=== PATIENT | female | born 1945 | race Caucasian/White ===

== ENCOUNTER 2022-06-29 03:33 | Emergency (ER) | payer OTHER ==
[~2022-06-29] VITALS: Ht 149.9 cm; Wt 91.0 kg
[2022-06-29 04:43] LABS: Basophils # (auto) 0.1 10 ^3/uL (0-0.2); Basophils % (auto) 0.5 % (0.0-2.0); Eosinophils # (auto) 0.2 10 ^3/uL (0-0.8); Eosinophils % (auto) 1.4 % (0.0-7.0); Lymphocytes # (auto) 0.9 10 ^3/uL (0.4-5.4); Neutrophils # (auto) 8.7 10 ^3/uL (1.6-8.6); White Blood Cell 10.8 10^3/uL (4.4-10.8)
[2022-06-29 04:45] LABS: Hematocrit 29.5 % (36.0-46.0); Hemoglobin 9.4 g/dL (12.2-16.2); Lymphocytes % (auto) 8.5 % (10.0-50.0); Mean Corpuscular Hemoglobin 22.5 pg (28.0-32.0); Mean Corpuscular Volume 70.3 fL (80.0-100.0); Monocytes % (auto) 9.6 % (0.0-12.0); Red Blood Cells 4.19 10^6/uL (4.0-5.20); Red Cell Distribution Width 17.2 % (11.8-14.3)
[2022-06-29 05:03] LABS: Albumin 3.2 g/dL (3.4-5.0); BUN/Creatinine Ratio 24.1; Calcium 8.2 mg/dL (8.5-10.1); Potassium 4.2 mmol/L (3.5-5.1)
[2022-06-29 05:06] LABS: Lactic Acid w/Reflex 2.8 mmol/L (0.4-2.0)
[2022-06-29 05:11] LABS: Bilirubin, Total 0.6 mg/dL (0.2-1.0); Total Protein 6.8 g/dL (6.4-8.2)
[2022-06-29] MEDS ORDERED: VANCOMYCIN 1GM/250ML 250 ML IV ONE (05:45)
[2022-06-29] MEDS ORDERED: SODIUM CHLORIDE 0.9% 2,750 ML IV ONE (05:45)
[2022-06-29] MEDS ORDERED: CLINDAMYCIN 300MG IV 50 ML IV ONE (05:45)
[2022-06-29 07:14] LABS: Urine Bacteria FEW /hpf (None Seen); Urine Blood Negative /uL (Negative); Urine Specific Gravity 1.014 (1.001-1.035); Urine WBC 35 /hpf (0 - 5)
[2022-06-29 07:16] LABS: INR 1.16 (0.9-1.15); Partial Thromboplastin Time 31.6 sec (24.6-33.4)
[2022-06-29 07:25] LABS: Alcohol, Urine < 3.0 mg/dL (0-10); Amphetamine Screen, Urine NEGATIVE (NEGATIVE); Barbiturate Scree,Urine NEGATIVE (NEGATIVE); Benzodiazephine Screen, Urine NEGATIVE (NEGATIVE); Cannabinoid Screen, Urine NEGATIVE (NEGATIVE); Cocaine Screen, Urine NEGATIVE (NEGATIVE); Opiate Scree,Urine NEGATIVE (NEGATIVE); Phencyclidine Screen, Urine NEGATIVE (NEGATIVE)
[2022-06-29] MEDS ORDERED: LABETALOL HCL 5 MG/ML 4ML SYRINGE IV ONE (13:15)
[2022-06-29] MEDS ORDERED: cefTRIAXone 1GM/50ML D5W 50 ML IV ONE (14:00)
[2022-06-29 16:00] VITALS: BP 124/76
== END 2022-06-29 16:45 | disposition short-term general hospital (02) ==
LOC: EDBD 03:33 → ER 03:33
DX: G93.41 Metabolic encephalopathy (principal); N39.0 Urinary tract infection, site not specified; R94.31 Abnormal electrocardiogram [ECG] [EKG]; Z20.822 Contact with and (suspected) exposure to COVID-19
CPT/HCPCS: 36415; 51702; 70450; 71045; 74176; 80053; 80307; 81001; 82962; 83605; 84484; 85025; 85610; 85730; 86850; 86900; 86901; 87040; 87426; 93005; 96365; 96366; 96367; 96375; 99285; J0696; J3370; J3490; J7030

== ENCOUNTER 2022-10-27 09:42 | Inpatient (IN) | payer OTHER ==
[~2022-10-27] VITALS: Ht 154.9 cm; Wt 85.4 kg
[2022-10-27 10:53] LABS: Basophils # (auto) 0.1 10 ^3/uL (0-0.2); Basophils % (auto) 0.6 % (0.0-2.0); Eosinophils # (auto) 0.1 10 ^3/uL (0-0.8); Eosinophils % (auto) 1.1 % (0.0-7.0); Hematocrit 30.1 % (36.0-46.0); Lymphocytes # (auto) 0.6 10 ^3/uL (0.4-5.4); Lymphocytes % (auto) 6.9 % (10.0-50.0); Mean Corpuscular Hgb Conc. 33.3 g/dL (32.0-36.0); Monocytes # (auto) 0.8 10 ^3/uL (0-1.3); Monocytes % (auto) 8.6 % (0.0-12.0); Neutrophils # (auto) 7.8 10 ^3/uL (1.6-8.6); Neutrophils % (auto) 82.8 % (37.0-80.0); Red Blood Cells 4.02 10^6/uL (4.0-5.20); Red Cell Distribution Width 17.8 % (11.8-14.3); White Blood Cell 9.4 10^3/uL (4.4-10.8)
[2022-10-27 11:07] LABS: Calcium 8.5 mg/dL (8.5-10.1)
[2022-10-27 11:09] LABS: BUN/Creatinine Ratio 33.2
[2022-10-27 11:12] LABS: Bilirubin, Total 0.7 mg/dL (0.2-1.0); Total Protein 6.5 g/dL (6.4-8.2)
[2022-10-27] MEDS ORDERED: SPIRONOLACTONE 25 MG TAB PO ONE (11:15)
[2022-10-27] MEDS ORDERED: FUROSEMIDE 20 MG/2 ML VIAL IV ONE (11:15)
[2022-10-27] MEDS ORDERED: ALBUTEROL SULF 2.5 MG/0.5ML(0.5%) NEB SOLN NEB ONE (11:15)
[2022-10-27] MEDS ORDERED: IPRATROPIUM BROM 0.5 MG/2.5ML INH SOL NEB ONE (11:15)
[2022-10-27 11:21] LABS: Potassium 5.7 mmol/L (3.5-5.1)
[2022-10-27 15:36] LABS: Urine Bacteria FEW /hpf (None Seen); Urine Blood Negative /uL (Negative); Urine WBC 7 /hpf (0 - 5)
[2022-10-27] MEDS ORDERED: cefTRIAXone 1GM/50ML D5W 50 ML IV ONE (16:30)
[2022-10-27] MEDS ORDERED: ALBUTEROL SULF 2.5 MG/0.5ML(0.5%) NEB SOLN NEB PRN (17:30)
[2022-10-27] MEDS ORDERED: HYDROmorphone HCL 2 MG/ML VL/or syr IV PRN (17:30)
[2022-10-27] MEDS ORDERED: ONDANSETRON HCL 4 MG/2 ML VIAL IV PRN (17:30)
[2022-10-27] MEDS ORDERED: MORPHINE SULFATE INJ 2 MG/ml SYRG IV PRN (17:30)
[2022-10-27] MEDS ORDERED: NITROGLYCERIN 0.4 MG SL TAB SL PRN (17:30)
[2022-10-27] MEDS ORDERED: ACETAMINOPHEN 325 MG TAB PO PRN (17:30)
[2022-10-27] MEDS ORDERED: DEXTROSE (50%) 50ML SYRG IV PRN (17:45)
[2022-10-27 18:00] VITALS: BP 116/44
[2022-10-27] MEDS: HEPARIN SODIUM (PORCINE) 5000 UNITS/ML 1ML VIAL SC SCH (18:40)
[2022-10-27] MEDS: FUROSEMIDE 20 MG/2 ML VIAL IV SCH (18:41)
[2022-10-27 20:34] LABS: Chloride 96 mmol/L (98-107); Potassium 5.1 mmol/L (3.5-5.1); Sodium 132 mmol/L (136-145)
[2022-10-27 20:35] LABS: Anion Gap 11 (5-15); BUN/Creatinine Ratio 34.1; Blood Urea Nitrogen 62 mg/dL (7-18); Calcium 8.4 mg/dL (8.5-10.1); Carbon Dioxide 25 mmol/L (21-32); GFR African American 35 mL/min; GFR Non-African American 29 mL/min; Glucose 250 mg/dL (74-106)
[2022-10-27 22:00] VITALS: BP 135/62
[2022-10-27] MEDS: SODIUM CHLOR 0.9% PF (SALINE LOCK) 10ML VIAL/SYR IV SCH (22:00)
[2022-10-27] MEDS: ACCU-CHEK COMFORT CURVE STRIP VI SCH (22:00)
[2022-10-27] MEDS ORDERED: LISI40TA11 PO (22:35)
[2022-10-27] MEDS ORDERED: SPIR25TA8 PO (22:35)
[2022-10-27] MEDS ORDERED: GLIP10TA9 PO (22:35)
[2022-10-27] MEDS ORDERED: METF-370 PO (22:35)
[2022-10-27] MEDS ORDERED: OMEP-260 PO (22:35)
[2022-10-27] MEDS ORDERED: CARV25TA55 PO (22:35)
[2022-10-27] MEDS ORDERED: TRAZ50TA2 PO (22:35)
[2022-10-27] MEDS ORDERED: ATOR40TA52 PO (22:35)
[2022-10-27] MEDS ORDERED: SERT-376 PO (22:35)
[2022-10-27] MEDS ORDERED: FURO40TA4 PO (22:35)
[2022-10-27] MEDS: HYDROcodone-ACET 5/325MG TAB PO PRN (23:47)
[2022-10-28] MEDS: InsuLIN REG 1unit/0.01ml Soln (100units/ml) SC SCH ×5 (00:21→21:58)
[2022-10-28] MEDS: HEPARIN SODIUM (PORCINE) 5000 UNITS/ML 1ML VIAL SC SCH ×2 (03:32→11:40)
[2022-10-28 05:00] VITALS: BP 151/46
[2022-10-28] MEDS: SODIUM CHLOR 0.9% PF (SALINE LOCK) 10ML VIAL/SYR IV SCH ×3 (05:54→21:58)
[2022-10-28] MEDS: FUROSEMIDE 20 MG/2 ML VIAL IV SCH ×2 (05:54→18:35)
[2022-10-28] MEDS: ACCU-CHEK COMFORT CURVE STRIP VI SCH ×4 (06:16→22:00)
[2022-10-28] MEDS: HYDROcodone-ACET 5/325MG TAB PO PRN ×2 (06:17→20:30)
[2022-10-28 09:00] VITALS: BP 133/53
[2022-10-28] MEDS: cefTRIAXone 1GM/50ML D5W 50 ML IV SCH (11:33)
[2022-10-28 13:00] VITALS: BP 131/63
[2022-10-28 17:00] VITALS: BP 143/54
[2022-10-28 17:53] LABS: Calcium 8.8 mg/dL (8.5-10.1)
[2022-10-28] MEDS: APIXABAN 5 MG TAB PO SCH (21:54)
[2022-10-28] MEDS: CLINDAMYCIN 900MG IV 50 ML IV SCH (21:56)
[2022-10-28] MEDS: INSULIN LANTUS (GLARGINE) 1 /0.01ml (100units/ml) SC SCH (21:59)
[2022-10-28 22:00] VITALS: BP 149/40
[2022-10-29 04:55] VITALS: BP 102/72
[2022-10-29] MEDS: CLINDAMYCIN 900MG IV 50 ML IV SCH (06:08)
[2022-10-29] MEDS: ACCU-CHEK COMFORT CURVE STRIP VI SCH ×4 (06:09→21:16)
[2022-10-29] MEDS: SODIUM CHLOR 0.9% PF (SALINE LOCK) 10ML VIAL/SYR IV SCH ×3 (06:11→21:16)
[2022-10-29] MEDS: InsuLIN REG 1unit/0.01ml Soln (100units/ml) SC SCH ×4 (06:12→21:15)
[2022-10-29] MEDS: FUROSEMIDE 20 MG/2 ML VIAL IV SCH ×2 (06:13→17:24)
[2022-10-29 08:00] VITALS: BP 137/54
[2022-10-29] MEDS ORDERED: APIX2.5T PO (10:13)
[2022-10-29] MEDS ORDERED: APIX5TAB PO (10:13)
[2022-10-29] MEDS ORDERED: ONDA-155 PO (10:15)
[2022-10-29] MEDS: APIXABAN 5 MG TAB PO SCH ×2 (10:16→20:59)
[2022-10-29] MEDS: cefTRIAXone 1GM/50ML D5W 50 ML IV SCH (10:16)
[2022-10-29 12:00] VITALS: BP 141/50
[2022-10-29 16:00] VITALS: BP 128/53
[2022-10-29 20:00] VITALS: BP 129/52
[2022-10-29] MEDS: HYDROcodone-ACET 5/325MG TAB PO PRN (20:58)
[2022-10-29] MEDS: ATORVASTATIN 20 MG TAB PO SCH (20:59)
[2022-10-29] MEDS: CARVEDILOL 3.125 MG TAB PO SCH (21:00)
[2022-10-29] MEDS: INSULIN LANTUS (GLARGINE) 1 /0.01ml (100units/ml) SC SCH (21:15)
[2022-10-29 22:47] VITALS: BP 129/52
[2022-10-30 05:19] VITALS: BP 126/41
[2022-10-30 06:02] LABS: Basophils # (auto) 0 10 ^3/uL (0-0.2); Basophils % (auto) 0.6 % (0.0-2.0); Eosinophils # (auto) 0.1 10 ^3/uL (0-0.8); Eosinophils % (auto) 1.5 % (0.0-7.0); Hematocrit 31.1 % (36.0-46.0); Hemoglobin 10.2 g/dL (12.2-16.2); Lymphocytes # (auto) 0.8 10 ^3/uL (0.4-5.4); Mean Corpuscular Hemoglobin 24.8 pg (28.0-32.0); Mean Corpuscular Hgb Conc. 32.9 g/dL (32.0-36.0); Mean Corpuscular Volume 75.2 fL (80.0-100.0); Monocytes # (auto) 0.9 10 ^3/uL (0-1.3); Monocytes % (auto) 11.5 % (0.0-12.0); Neutrophils # (auto) 5.7 10 ^3/uL (1.6-8.6); Neutrophils % (auto) 75.4 % (37.0-80.0); Nucleated Red Blood Cells % 1.5 %; Red Blood Cells 4.13 10^6/uL (4.0-5.20); Red Cell Distribution Width 17.2 % (11.8-14.3); White Blood Cell 7.6 10^3/uL (4.4-10.8)
[2022-10-30 06:20] LABS: BUN/Creatinine Ratio 33.6; Calcium 9.3 mg/dL (8.5-10.1); Potassium 4.6 mmol/L (3.5-5.1)
[2022-10-30] MEDS: FUROSEMIDE 20 MG/2 ML VIAL IV SCH ×2 (06:21→17:06)
[2022-10-30] MEDS: SODIUM CHLOR 0.9% PF (SALINE LOCK) 10ML VIAL/SYR IV SCH ×3 (06:21→21:42)
[2022-10-30] MEDS: ACCU-CHEK COMFORT CURVE STRIP VI SCH ×4 (06:21→21:40)
[2022-10-30] MEDS: InsuLIN REG 1unit/0.01ml Soln (100units/ml) SC SCH ×4 (06:27→21:45)
[2022-10-30] MEDS: cefTRIAXone 1GM/50ML D5W 50 ML IV SCH (08:49)
[2022-10-30] MEDS: APIXABAN 5 MG TAB PO SCH ×2 (08:50→21:35)
[2022-10-30] MEDS: CARVEDILOL 3.125 MG TAB PO SCH ×2 (08:52→21:37)
[2022-10-30 09:00] VITALS: BP 146/90
[2022-10-30] MEDS ORDERED: PANTOPRAZOLE 40 MG TAB PO SCH (10:00)
[2022-10-30] MEDS ORDERED: AZITHROMYCIN 250 MG TAB PO SCH (10:00)
[2022-10-30] MEDS ORDERED: SERTRALINE HCL 50 MG TAB PO SCH (10:00)
[2022-10-30 13:00] VITALS: BP 120/43
[2022-10-30 17:00] VITALS: BP 123/53
[2022-10-30 18:03] VITALS: BP 123/53
[2022-10-30] MEDS: ATORVASTATIN 20 MG TAB PO SCH (21:36)
[2022-10-30] MEDS: INSULIN LANTUS (GLARGINE) 1 /0.01ml (100units/ml) SC SCH (21:45)
== END 2022-10-30 22:00 | disposition short-term general hospital (02) | DRG 291 ==
LOC: EDBD 09:42 → ER 09:42 → OVERFLOW 17:28 → TELE-WESTW 21:46
PROVIDERS: ADMIT Internal Medicine; ATTEND Internal Medicine
DX: I13.0 Hypertensive heart and chronic kidney disease with heart failure and stage 1 through stage 4 chronic kidney disease, or unspecified chronic kidney disease (principal); I50.43 Acute on chronic combined systolic (congestive) and diastolic (congestive) heart failure; J96.00 Acute respiratory failure, unspecified whether with hypoxia or hypercapnia; N17.0 Acute kidney failure with tubular necrosis; J45.901 Unspecified asthma with (acute) exacerbation; E44.0 Moderate protein-calorie malnutrition; J91.8 Pleural effusion in other conditions classified elsewhere; I48.20 Chronic atrial fibrillation, unspecified; J44.1 Chronic obstructive pulmonary disease with (acute) exacerbation; N18.4 Chronic kidney disease, stage 4 (severe); N39.0 Urinary tract infection, site not specified; L03.116 Cellulitis of left lower limb; D68.69 Other thrombophilia; Z20.822 Contact with and (suspected) exposure to COVID-19; D63.8 Anemia in other chronic diseases classified elsewhere; E11.22 Type 2 diabetes mellitus with diabetic chronic kidney disease; E87.5 Hyperkalemia; K21.9 Gastro-esophageal reflux disease without esophagitis; F32.A Depression, unspecified; E66.9 Obesity, unspecified; E78.5 Hyperlipidemia, unspecified; Z95.2 Presence of prosthetic heart valve; Z68.35 Body mass index [BMI] 35.0-35.9, adult; Z90.49 Acquired absence of other specified parts of digestive tract; Z88.0 Allergy status to penicillin; Z88.8 Allergy status to other drugs, medicaments and biological substances
CPT/HCPCS: 36415; 51702; 70450; 71045; 80048; 80053; 81001; 82962; 83036; 83880; 84443; 84484; 85025; 87081; 87086; 87426; 87804; 93005; 93306; 93970; 94640; 96365; 96375; 97163; G0378; J0696; J1815; J3490

== ENCOUNTER 2023-07-29 17:41 | Emergency (ER) | payer OTHER ==
[~2023-07-29] VITALS: Ht 157.5 cm; Wt 94.0 kg
[~2023-07-29 17:41] MED LIST: APIX2.5T PO; APIX5TAB PO; ATOR40TA52 PO; CARV25TA55 PO; FURO40TA4 PO; GLIP10TA9 PO; LISI40TA16 PO; METF-370 PO; OMEP1CAP70 PO; ONDA-155 PO; SERT-376 PO; SPIR25TA8 PO; TRAZ-227 PO
[2023-07-29 18:08] VITALS: PULSE 101; O2SAT 96
[2023-07-29 18:54] LABS: Basophils # (auto) 0.1 10 ^3/uL (0-0.2); Mean Corpuscular Volume 72.9 fL (80.0-100.0); White Blood Cell 9.9 10^3/uL (4.4-10.8)
[2023-07-29 18:55] LABS: Basophils % (auto) 0.7 % (0.0-2.0); Eosinophils # (auto) 0.3 10 ^3/uL (0-0.8); Eosinophils % (auto) 2.9 % (0.0-7.0); Hematocrit 30.8 % (36.0-46.0); Hemoglobin 10.1 g/dL (12.2-16.2); Lymphocytes # (auto) 0.4 10 ^3/uL (0.4-5.4); Lymphocytes % (auto) 4.4 % (10.0-50.0); Mean Corpuscular Hemoglobin 23.8 pg (28.0-32.0); Mean Corpuscular Hgb Conc. 32.6 g/dL (32.0-36.0); Monocytes # (auto) 0.8 10 ^3/uL (0-1.3); Neutrophils # (auto) 8.3 10 ^3/uL (1.6-8.6); Red Blood Cells 4.22 10^6/uL (4.0-5.20); Red Cell Distribution Width 18.8 % (11.8-14.3)
[2023-07-29] MEDS ORDERED: ONDANSETRON ODT 4 MG TAB PO ONE (19:30)
[2023-07-29] MEDS ORDERED: SODIUM CHLORIDE 0.9% 1,000 ML IV ONE (19:30)
[2023-07-29 19:34] VITALS: PULSE 101; O2SAT 97
[2023-07-29] MEDS ORDERED: ACETAMINOPHEN 325 MG TAB PO ONE (19:45)
[2023-07-29] MEDS ORDERED: IOHEXOL 350 MG/ML 100ML IJ ONE (20:19)
[2023-07-29 20:49] LABS: INR 1.09 (0.9-1.15); Partial Thromboplastin Time 29.1 SEC (24.5-34.5); Prothrombin Time 11.4 sec (9.3-11.8)
[2023-07-29 21:46] LABS: Alanine Aminotransferase 19 U/L (7-40); Albumin 4.2 g/dL (3.2-4.8); Alkaline Phosphatase 147 U/L (46-116); Anion Gap 8 (5-15); Aspartate Aminotransferase 22 U/L (13-40); BUN/Creatinine Ratio 24.5 (10.0-20.0); Bilirubin, Total 0.6 mg/dL (0.2-1.0); Blood Alcohol 3.1 mg/dL (<10); Blood Urea Nitrogen 48 mg/dL (9-23); Carbon Dioxide 26 mmol/L (20-30); Chloride 99 mmol/L (98-107); Glucose 163 mg/dL (74-106); Potassium 5.2 mmol/L (3.5-5.1); Sodium 133 mmol/L (136-145); Total Protein 6.8 g/dL (5.7-8.2)
[2023-07-29 21:59] LABS: Magnesium 1.6 mg/dL (1.6-2.6)
[2023-07-30 00:26] LABS: COVID19 ANTIGEN SOFIA FIA NEGATIVE (NEGATIVE); Rapid Influenza A Negative (Negative); Rapid Influenza B Negative (Negative)
[2023-07-30 00:58] LABS: Amphetamine Screen, Urine Neg (NEGATIVE); Barbiturate Scree,Urine Neg (NEGATIVE); Benzodiazephine Screen, Urine Neg (NEGATIVE); Cocaine Screen, Urine Neg (NEGATIVE); Opiate Scree,Urine Neg (NEGATIVE)
[2023-07-30 00:59] LABS: Cannabinoid Screen, Urine Neg (NEGATIVE); Phencyclidine Screen, Urine Neg (NEGATIVE)
[2023-07-30 01:07] LABS: Urine Bacteria NONE SEEN /hpf (None Seen); Urine Blood Negative /uL (Negative); Urine Clarity Clear (Clear); Urine Color Colorless (Yellow); Urine Protein, UAD Negative (Negative); Urine Specific Gravity 1.014 (1.001-1.035); Urine Urobilinogen Normal (Negative); Urine WBC 3 /hpf (0 - 5)
[2023-07-30] MEDS ORDERED: cefTRIAXone 1GM/50ML D5W 50 ML IV ONE (02:45)
[2023-07-30] MEDS ORDERED: AZITHROMYCIN 500MG/ 250ML 250 ML IV ONE (02:45)
[2023-07-30] MEDS ORDERED: VANCOMYCIN PER PHARMACY 0 MG IV SCH (03:45)
[2023-07-30] MEDS ORDERED: ACETAMINOPHEN 325 MG TAB PO ONE (03:45)
[2023-07-30] MEDS ORDERED: ONDANSETRON HCL 4 MG/2 ML VIAL IV ONE (05:00)
[2023-07-30] MEDS ORDERED: MORPHINE SULFATE 4 MG/ML SYR/VIAL IV ONE (05:00)
[2023-07-30] MEDS ORDERED: VANCOMYCIN 1GM/250ML 250 ML IV ONE (05:15)
[2023-07-30] MEDS ORDERED: SODIUM CHLORIDE 0.9% 1,000 ML IV ONE ×2 (06:00→06:15)
[2023-07-30] MEDS ORDERED: ALBUMIN 5% 250 ML IV ONE (06:00)
[2023-07-30] MEDS ORDERED: ALBUMIN 25% 50 ML IV ONE (06:15)
[2023-07-30 07:20] VITALS: O2SAT 97
[2023-07-30 07:41] VITALS: BP 123/44; PULSE 82; RESP 15; TEMP 99.2
[2023-07-30 07:45] VITALS: O2SAT 96
== END 2023-07-30 08:01 | disposition short-term general hospital (02) ==
LOC: EDUNIT# 17:41 → EDBD 17:41 → ER 17:41
DX: R40.4 Transient alteration of awareness (principal); R53.1 Weakness; R50.9 Fever, unspecified; N73.9 Female pelvic inflammatory disease, unspecified; I10 Essential (primary) hypertension; J44.9 Chronic obstructive pulmonary disease, unspecified; Z88.8 Allergy status to other drugs, medicaments and biological substances; Z79.899 Other long term (current) drug therapy; Z86.2 Personal history of diseases of the blood and blood-forming organs and certain disorders involving the immune mechanism
CPT/HCPCS: 36415; 70450; 71045; 80053; 80307; 80320; 81001; 83605; 83735; 83880; 84484; 85025; 85379; 85610; 85730; 87040; 87426; 87804; 93005; 96361; 96365; 96366; 96368; 96375; 99285; J0456; J0696; J2270; J2405; J7030; Q0162; Q9967

== ENCOUNTER 2023-12-09 19:46 | Emergency (ER) | payer OTHER ==
[~2023-12-09] VITALS: Ht 152.4 cm; Wt 79.5 kg
[2023-12-09 21:00] LABS: Basophils # (auto) 0.1 10 ^3/uL (0-0.2); Eosinophils # (auto) 0.1 10 ^3/uL (0-0.8); Hemoglobin 8.4 g/dL (12.2-16.2); Lymphocytes # (auto) 0.9 10 ^3/uL (0.4-5.4); Neutrophils # (auto) 12.5 10 ^3/uL (1.6-8.6); Nucleated Red Blood Cells % 0.1 %
[2023-12-09 21:01] LABS: Basophils % (auto) 0.7 % (0.0-2.0); Eosinophils % (auto) 0.9 % (0.0-7.0); Hematocrit 27.6 % (36.0-46.0); Lymphocytes % (auto) 6.1 % (10.0-50.0); Mean Corpuscular Hgb Conc. 30.4 g/dL (32.0-36.0); Mean Corpuscular Volume 72.3 fL (80.0-100.0); Monocytes # (auto) 1.1 10 ^3/uL (0-1.3); Monocytes % (auto) 7.4 % (0.0-12.0); Neutrophils % (auto) 84.9 % (37.0-80.0); Red Blood Cells 3.82 10^6/uL (4.0-5.20); Red Cell Distribution Width 19.5 % (11.8-14.3); White Blood Cell 14.8 10^3/uL (4.4-10.8)
[2023-12-09 21:10] VITALS: BP 154/51; PULSE 22; RESP 22; TEMP 98.8; O2SAT 96
[2023-12-09 21:10] LABS: Alanine Aminotransferase 17 U/L (7-40); Albumin 3.9 g/dL (3.2-4.8); Alkaline Phosphatase 117 U/L (46-116); Anion Gap 5 (5-15); Aspartate Aminotransferase 23 U/L (13-40); BUN/Creatinine Ratio 32.4 (10.0-20.0); Blood Urea Nitrogen 48 mg/dL (9-23); Calcium 8.6 mg/dL (8.7-10.4); Carbon Dioxide 32 mmol/L (20-30); Chloride 97 mmol/L (98-107); Glucose 170 mg/dL (74-106); Potassium 3.9 mmol/L (3.5-5.1); Sodium 134 mmol/L (136-145)
[2023-12-09 21:11] LABS: Bilirubin, Total 1.2 mg/dL (0.2-1.0); Total Protein 6.4 g/dL (5.7-8.2)
[2023-12-09] MEDS: SODIUM CHLORIDE 0.9% 1,000 ML IV ONE (21:38)
[2023-12-09 21:40] LABS: Urine Bacteria NONE SEEN /hpf (None Seen); Urine Blood Negative /uL (Negative); Urine Clarity Clear (Clear); Urine Color Colorless (Yellow); Urine Protein, UAD Negative (Negative); Urine WBC 1 /hpf (0 - 5); Urine pH 7.5 (5.0-8.0)
== END 2023-12-09 23:05 | disposition home or self-care (01) ==
LOC: EDBD 19:46 → ER 19:46
DX: R40.4 Transient alteration of awareness (principal); I11.0 Hypertensive heart disease with heart failure; I50.9 Heart failure, unspecified; E78.5 Hyperlipidemia, unspecified; K21.9 Gastro-esophageal reflux disease without esophagitis; F32.9 Major depressive disorder, single episode, unspecified; J44.9 Chronic obstructive pulmonary disease, unspecified; Z98.890 Other specified postprocedural states; Z87.891 Personal history of nicotine dependence; Z91.041 Radiographic dye allergy status; Z79.899 Other long term (current) drug therapy
CPT/HCPCS: 36415; 70450; 74176; 80053; 81001; 82140; 84484; 85025; 93005; 96360; 99284; J7030

== ENCOUNTER 2024-04-09 08:14 | Emergency (ER) | payer OTHER ==
[2024-04-09] MEDS: ONDANSETRON HCL 4 MG/2 ML VIAL IV ONE (09:19)
[2024-04-09] MEDS: SODIUM CHLORIDE 0.9% 500 ML IVB ONE (09:20)
[2024-04-09 09:54] LABS: Basophils # (auto) 0.1 10 ^3/uL (0-0.2); Eosinophils # (auto) 0 10 ^3/uL (0-0.8); Eosinophils % (auto) 0.1 % (0.0-7.0); Monocytes % (auto) 7.3 % (0.0-12.0); Nucleated Red Blood Cells % 0.1 %
[2024-04-09 09:58] LABS: Urine Bacteria None Seen /hpf (None Seen)
[2024-04-09 09:58] LABS: Basophils % (auto) 0.5 % (0.0-2.0); Hematocrit 39.3 % (36.0-46.0); Hemoglobin 13.3 g/dL (12.2-16.2); Lymphocytes # (auto) 0.6 10 ^3/uL (0.4-5.4); Lymphocytes % (auto) 4.3 % (10.0-50.0); Mean Corpuscular Hemoglobin 25.9 pg (28.0-32.0); Mean Corpuscular Hgb Conc. 33.7 g/dL (32.0-36.0); Mean Corpuscular Volume 76.9 fL (80.0-100.0); Neutrophils # (auto) 12.3 10 ^3/uL (1.6-8.6); Neutrophils % (auto) 87.8 % (37.0-80.0); Red Blood Cells 5.12 10^6/uL (4.0-5.20)
[2024-04-09 10:00] VITALS: RESP 18
[2024-04-09 10:04] LABS: INR 1.07 (0.9-1.15); Partial Thromboplastin Time 25.3 SEC (24.5-34.5); Prothrombin Time 11.3 sec (9.3-11.8)
[2024-04-09 10:10] LABS: Blood Alcohol < 3.0 mg/dL (<10); Magnesium 2.1 mg/dL (1.6-2.6)
[2024-04-09 10:32] LABS: Amphetamine Screen, Urine Neg (NEGATIVE); Barbiturate Scree,Urine Neg (NEGATIVE); Benzodiazephine Screen, Urine Neg (NEGATIVE); Cannabinoid Screen, Urine Neg (NEGATIVE); Cocaine Screen, Urine Neg (NEGATIVE); Opiate Scree,Urine Neg (NEGATIVE); Phencyclidine Screen, Urine Neg (NEGATIVE)
[2024-04-09 10:40] LABS: Red Cell Distribution Width 29.6 % (11.8-14.3)
[2024-04-09 11:06] LABS: Urine Blood Negative /uL (Negative); Urine Clarity Clear (Clear); Urine Color Light-Yellow (Yellow); Urine Protein, UAD TRACE (Negative); Urine Specific Gravity 1.014 (1.001-1.035); Urine Urobilinogen Normal (Negative); Urine WBC 9 /hpf (0 - 5); Urine pH 6.5 (5.0-9.0)
[2024-04-09 11:51] LABS: Alanine Aminotransferase 20 U/L (7-40); Albumin 4.3 g/dL (3.2-4.8); Alkaline Phosphatase 158 U/L (46-116); Anion Gap 5 (5-15); Aspartate Aminotransferase 15 U/L (13-40); BUN/Creatinine Ratio 31.1 (10.0-20.0); Bilirubin, Total 0.9 mg/dL (0.2-1.0); Blood Urea Nitrogen 46 mg/dL (9-23); Calcium 9.8 mg/dL (8.5-10.1); Carbon Dioxide 29 mmol/L (20-30); Chloride 99 mmol/L (98-107); Glucose 257 mg/dL (74-106); Potassium 4.5 mmol/L (3.5-5.1); Sodium 133 mmol/L (136-145); Total Protein 7.3 g/dL (5.7-8.2)
[2024-04-09 12:08] LABS: Ovalocytes MODERATE; Platelet Estimate Adequate
[2024-04-09 12:09] LABS: Anisocytosis Marked
[2024-04-09] MEDS: HYDROcodone-ACET 5/325MG TAB PO ONE (15:26)
[2024-04-09 16:12] LABS: COVID19 ANTIGEN SOFIA FIA NEGATIVE (NEGATIVE)
[2024-04-09 19:37] VITALS: BP 132/50; PULSE 93; TEMP 98.1; O2SAT 98
[2024-04-09 20:15] VITALS: RESP 16
== END 2024-04-09 19:55 | disposition short-term general hospital (02) ==
LOC: EDBD 08:14 → ER 08:14
DX: R41.82 Altered mental status, unspecified (principal); I11.0 Hypertensive heart disease with heart failure; I50.9 Heart failure, unspecified; J44.9 Chronic obstructive pulmonary disease, unspecified; E11.9 Type 2 diabetes mellitus without complications; F32.9 Major depressive disorder, single episode, unspecified; K21.9 Gastro-esophageal reflux disease without esophagitis; E78.5 Hyperlipidemia, unspecified; Z98.890 Other specified postprocedural states; Z87.891 Personal history of nicotine dependence; Z88.0 Allergy status to penicillin; Z91.041 Radiographic dye allergy status; Z79.899 Other long term (current) drug therapy; Z20.822 Contact with and (suspected) exposure to COVID-19
CPT/HCPCS: 36415; 70450; 71045; 80053; 80307; 80320; 81001; 82140; 83605; 83735; 83880; 84484; 85025; 85610; 85730; 87040; 87086; 87426; 93005; 96374; 99285; J2405; 87088; 87186

== ENCOUNTER 2024-05-12 17:12 | Emergency (ER) | payer OTHER ==
[~2024-05-12] VITALS: Ht 160 cm; Wt 68.2 kg
[2024-05-12 18:00] VITALS: PULSE 112; RESP 18; O2SAT 94
[2024-05-12 18:31] LABS: Basophils # (auto) 0 10 ^3/uL (0-0.2); Basophils % (auto) 0.4 % (0.0-2.0); Eosinophils # (auto) 0.1 10 ^3/uL (0-0.8); Eosinophils % (auto) 1.4 % (0.0-7.0); Hemoglobin 10.5 g/dL (12.2-16.2); Lymphocytes # (auto) 0.6 10 ^3/uL (0.4-5.4); Lymphocytes % (auto) 5.8 % (10.0-50.0); Mean Corpuscular Hemoglobin 26.7 pg (28.0-32.0); Mean Corpuscular Hgb Conc. 33.9 g/dL (32.0-36.0); Mean Corpuscular Volume 78.8 fL (80.0-100.0); Monocytes # (auto) 0.9 10 ^3/uL (0-1.3); Monocytes % (auto) 8.8 % (0.0-12.0); Neutrophils # (auto) 8.8 10 ^3/uL (1.6-8.6); Neutrophils % (auto) 83.6 % (37.0-80.0); Red Blood Cells 3.93 10^6/uL (4.0-5.20); White Blood Cell 10.5 10^3/uL (4.4-10.8)
[2024-05-12 18:34] LABS: Alanine Aminotransferase 73 U/L (7-40); Albumin 3.4 g/dL (3.2-4.8); Alkaline Phosphatase 236 U/L (46-116); Anion Gap 5 (5-15); Aspartate Aminotransferase 61 U/L (13-40); BUN/Creatinine Ratio 26.1 (10.0-20.0); Bilirubin, Total 0.9 mg/dL (0.2-1.0); Blood Urea Nitrogen 29 mg/dL (9-23); Calcium 8.4 mg/dL (8.7-10.4); Carbon Dioxide 28 mmol/L (20-30); Chloride 96 mmol/L (98-107); Glucose 305 mg/dL (74-106); Potassium 4.7 mmol/L (3.5-5.1); Sodium 129 mmol/L (136-145)
[2024-05-12 19:10] LABS: Anisocytosis Slight; Platelet Estimate Adequate
[2024-05-12] MEDS: levoFLOXacin 500MG 100 ML IV ONE (20:27)
[2024-05-12] MEDS: ACETAMINOPHEN 500 MG TAB PO ONE (20:32)
[2024-05-12] MEDS: ONDANSETRON HCL 4 MG/2 ML VIAL IV ONE (22:48)
[2024-05-12] MEDS: MORPHINE SULFATE 4 MG/ML SYR/VIAL IV ONE (22:51)
[2024-05-12] MEDS: SODIUM CHLORIDE 0.9% 1,000 ML IV ONE (23:53)
[2024-05-13 00:41] LABS: COVID19 ANTIGEN SOFIA FIA NEGATIVE (NEGATIVE)
[2024-05-13 01:19] LABS: Urine Bacteria None Seen /hpf (None Seen)
[2024-05-13 01:31] LABS: Urine Blood TRACE /uL (Negative); Urine Clarity Clear (Clear); Urine Color Dark-Yellow (Yellow); Urine Protein, UAD TRACE (Negative); Urine Specific Gravity 1.011 (1.001-1.035); Urine Urobilinogen 2 mg/dL (Negative); Urine WBC 4 /hpf (0 - 5)
[2024-05-13 07:55] VITALS: PULSE 84; RESP 21; O2SAT 98
[2024-05-13] MEDS: ONDANSETRON HCL 4 MG/2 ML VIAL IV ONE (08:21)
[2024-05-13] MEDS: MORPHINE SULFATE 4 MG/ML SYR/VIAL IV ONE (08:22)
[2024-05-13 11:11] VITALS: TEMP 97.9; O2SAT 92
[2024-05-13 11:20] VITALS: BP 104/66; PULSE 114; RESP 30
[2024-05-13] MEDS: MORPHINE SULFATE INJ 2 MG/ml SYRG IV ONE (11:20)
[2024-05-13] MEDS: MORPHINE SULFATE INJ 2 MG/ml SYRG ONE (11:22)
== END 2024-05-13 11:37 | disposition short-term general hospital (02) ==
LOC: EDBD 17:12 → EDUNIT# 17:12 → ER 17:12
DX: S16.1XXA Strain of muscle, fascia and tendon at neck level, initial encounter (principal); S09.8XXA Other specified injuries of head, initial encounter; E11.65 Type 2 diabetes mellitus with hyperglycemia; E87.1 Hypo-osmolality and hyponatremia; R79.89 Other specified abnormal findings of blood chemistry; I11.0 Hypertensive heart disease with heart failure; I50.9 Heart failure, unspecified; J44.9 Chronic obstructive pulmonary disease, unspecified; F32.9 Major depressive disorder, single episode, unspecified; E78.5 Hyperlipidemia, unspecified; K21.9 Gastro-esophageal reflux disease without esophagitis; Z98.890 Other specified postprocedural states; Z87.891 Personal history of nicotine dependence; Z88.0 Allergy status to penicillin; Z91.041 Radiographic dye allergy status; Z79.899 Other long term (current) drug therapy; Z20.822 Contact with and (suspected) exposure to COVID-19; W18.39XA Other fall on same level, initial encounter; Y93.89 Activity, other specified; Y92.098 Other place in other non-institutional residence as the place of occurrence of the external cause; Y99.8 Other external cause status
CPT/HCPCS: 36415; 70450; 71045; 72125; 80053; 81001; 83605; 83880; 84484; 85025; 87426; 93005; 96361; 96365; 96375; 96376; 99285; J1956; J2270; J2405; J7030

== ENCOUNTER 2024-05-25 19:25 | Emergency (ER) | payer OTHER ==
[~2024-05-25] VITALS: Ht 152.4 cm; Wt 100.0 kg
[2024-05-25 19:47] VITALS: BP 122/62; RESP 20; O2SAT 99
[2024-05-25 19:57] LABS: Basophils # (auto) 0.1 10 ^3/uL (0-0.2); Basophils % (auto) 0.7 % (0.0-2.0); Eosinophils # (auto) 0.1 10 ^3/uL (0-0.8); Eosinophils % (auto) 0.9 % (0.0-7.0); Hematocrit 29.2 % (36.0-46.0); Hemoglobin 9.7 g/dL (12.2-16.2); Lymphocytes # (auto) 0.8 10 ^3/uL (0.4-5.4); Lymphocytes % (auto) 5.2 % (10.0-50.0); Mean Corpuscular Hemoglobin 27.6 pg (28.0-32.0); Mean Corpuscular Hgb Conc. 33.2 g/dL (32.0-36.0); Monocytes # (auto) 1.3 10 ^3/uL (0-1.3); Monocytes % (auto) 8.2 % (0.0-12.0); Neutrophils # (auto) 13.7 10 ^3/uL (1.6-8.6); Red Blood Cells 3.51 10^6/uL (4.0-5.20); Red Cell Distribution Width 19.3 % (11.8-14.3); White Blood Cell 16.1 10^3/uL (4.4-10.8)
[2024-05-25 20:16] LABS: Alanine Aminotransferase 33 U/L (7-40); Alkaline Phosphatase 186 U/L (46-116); Anion Gap 4 (5-15); Aspartate Aminotransferase 22 U/L (13-40); BUN/Creatinine Ratio 25.7 (10.0-20.0); Blood Urea Nitrogen 26 mg/dL (9-23); Calcium 9.1 mg/dL (8.7-10.4); Carbon Dioxide 31 mmol/L (20-30); Chloride 99 mmol/L (98-107); Glucose 148 mg/dL (74-106); Magnesium 2.1 mg/dL (1.6-2.6); Potassium 4.5 mmol/L (3.5-5.1); Sodium 134 mmol/L (136-145)
[2024-05-25 20:17] LABS: Bilirubin, Total 0.9 mg/dL (0.2-1.0); INR 1.1 (0.9-1.15); Partial Thromboplastin Time 27.5 SEC (24.5-34.5); Prothrombin Time 11.6 sec (9.3-11.8); Total Protein 6.2 g/dL (5.7-8.2)
[2024-05-25 20:32] LABS: Albumin 3.7 g/dL (3.2-4.8)
[2024-05-25 21:21] VITALS: PULSE 90
== END 2024-05-25 23:19 | disposition left against medical advice (07) ==
LOC: ER 19:25 → EDBD 19:25 → ER 23:19
DX: R60.9 Edema, unspecified (principal); E11.22 Type 2 diabetes mellitus with diabetic chronic kidney disease; I13.0 Hypertensive heart and chronic kidney disease with heart failure and stage 1 through stage 4 chronic kidney disease, or unspecified chronic kidney disease; N18.9 Chronic kidney disease, unspecified; I50.9 Heart failure, unspecified; J44.9 Chronic obstructive pulmonary disease, unspecified; E78.5 Hyperlipidemia, unspecified; K21.9 Gastro-esophageal reflux disease without esophagitis; Z88.0 Allergy status to penicillin; Z91.041 Radiographic dye allergy status; Z90.49 Acquired absence of other specified parts of digestive tract; Z87.891 Personal history of nicotine dependence
CPT/HCPCS: 36415; 71045; 80053; 83735; 83880; 84484; 85025; 85610; 85730; 93005